=== PATIENT | female | born 1995 | race Caucasian/White ===

== ENCOUNTER 2016-09-24 16:02 | Emergency (ER) | payer MEDICAID, OTHER ==
[~2016-09-24] VITALS: Ht 165.1 cm; Wt 46.5 kg
[~2016-09-24 16:02] MED LIST: PRED20 PO; ZITH250T PO; ZYRT10TA12 PO
[2016-09-24 16:07] VITALS: BP 119/79; PULSE 91; RESP 16; TEMP 99; O2SAT 96
--- NOTE | 2016-09-24 16:50 | PD ---
HPI Chief Complaint: Cold / Flu Symptoms Time Seen by Provider: 16:46 Travel History International Travel<30 days: No Contact w/Intl Traveler<30days: No Traveled to known affect area: No History of Present Illness HPI 20 year-old female presents to the emergency room for evaluation of cough, congestion, sore throat, body aches, subjective fever, and chills for the past 3 days. She did not actually take her temperature. It started off as a sore throat and other symptoms came shortly afterward. States her throat feels better and this is the best she has felt since onset of symptoms. Patient has been taking [id number] Robitussin, Mucinex, DayQuil, NyQuil, and [place]- [place] cold without significant relief in symptoms. Denies chronic medical conditions or daily medications. She did not get a flu shot this year. 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 PFSH Past Medical History Autoimmune Disease: No Blood Disorders: No Anxiety: Yes Cardiovascular Problems: No Diminished Hearing: No Gastrointestinal Disorders: No Genitourinary: No Musculoskeletal: No Neurologic: No Psychiatric: No Respiratory: No Immunizations Current: Yes Influenza Vaccination: No ?: Not LMP: 09/12/16 Past Surgical History Other Surgery: No Social History Alcohol Use: Yes (FEW DRINKS PER MONTH) Tobacco Use: Yes Substance Use: Yes (marijuana) Allergies-Medications (Allergen,Severity, Reaction): Coded Allergies: Penicillin (Verified Allergy, Unknown, TOLD BY PARENTS DOES NOT KNOW, 09/24) Reported Meds & Prescriptions Reported Meds & Active Scripts Active No Active Prescriptions or Reported Medications Review of Systems Except as stated in HPI: all other systems reviewed are Neg Physical Exam Narrative GENERAL: Well-nourished, well-developed female in no acute distress. Afebrile. Ambulatory. SKIN: Warm and dry. HEAD: Normocephalic. EYES: No scleral icterus. No injection or drainage. NECK: Supple, trachea midline. No JVD or lymphadenopathy. ENT: Mucosa pink and moist. No erythema or exudates. No uvular edema. No uvular , palatal, or tonsillar deviation. Airway patent. Nasal turbinates appear normal without nasal blood, purulent drainage or septal hematoma. EARS: Bilateral pinnae and external canals appear within normal limits. Bilateral tympanic membranes without erythema, dullness or perforation. CARDIOVASCULAR: Regular rate and rhythm without murmurs, gallops, or rubs. RESPIRATORY: Breath sounds equal bilaterally. No accessory muscle use. No crackles, rales, wheezes, or rhonchi. Data Data Last Documented VS Vital Signs Date Time Temp Pulse Resp B/P Pulse Ox O2 Delivery O2 Flow Rate FiO2 09/24/16 16:07 99.0 91 16 119/79 96 MDM Medical Decision Making Medical Screen Exam Complete: Yes Emergency Medical Condition: Yes Medical Record Reviewed: Yes Differential Diagnosis Upper respiratory infection versus pneumonia versus influenza versus bronchitis Narrative Course 20-year-old female presents to the emergency room for evaluation of cold and flu symptoms for the past 3 days. Patient is afebrile and well-appearing in the emergency room. Vital signs stable. No evidence of bacterial infection of the ears, nose, throat, or lungs. Physical exam reassuring. States this is the best she has felt over the past 3 days but is requesting work. This is likely viral upper respiratory infection or influenza. Patient discharged with a work note and told to follow up with a primary care physician or return to the emergency room for worsening symptoms. She understands and agrees to plan. Diagnosis Primary Impression: Upper respiratory infection Qualified Code: J00 - Acute nasopharyngitis Referrals: Primary Care Physician Patient Instructions: General Instructions, Upper Respiratory Infection (ED) Departure Forms: Tests/Procedures, Work Release Enter return to work date: Sep 26, 2016 Additional Instructions: Rest and drink plenty of fluids. Continue [id number] medications for symptoms. Follow-up with a primary care physician. Return to the emergency room for worsening symptoms. Scripts No Active Prescriptions or Reported Meds Disposition: 01 DISCHARGE HOME Condition: Stable Latanya Colmenares Sep 24, 2016 16:49
== END 2016-09-24 17:01 | disposition home or self-care (01) ==
LOC: PHEFT 16:02
DX: J06.9 Acute upper respiratory infection, unspecified (principal); F41.9 Anxiety disorder, unspecified; Z72.0 Tobacco use; F12.10 Cannabis abuse, uncomplicated
CPT/HCPCS: 99283